=== PATIENT | male | born 1955 | race Caucasian/White ===

== ENCOUNTER 2021-03-19 00:12 | Emergency (ER) | payer OTHER ==
[2021-03-19 00:34] VITALS: BMI 16.8
[2021-03-19] MEDS ORDERED: ACETAMINOPHEN 325 MG TABLET (FP) PO ONE (00:49)
[2021-03-19] MEDS ORDERED: ACETAMINOPHEN 325 MG TABLET (FP) ONE (00:53)
[2021-03-19 01:34] LABS: BASO % 0.4 % (0-2.0); EOS % 1.8 % (0-4.5); HEMATOCRIT 39.7 % (35.4-49); HEMOGLOBIN 13.8 GM/dL (11.7-16.9); LYMPH % 46.5 % (8-40); MCH 32.7 pg (25.7-33.7); MCHC 34.8 g/dl (32.0-35.9); MEAN CELL VOLUME 93.8 fl (80-96); MEAN PLT VOLUME 10.3 fl (7.5-11.1); MONO % 8.1 % (3.8-10.2); NEUT % 43.2 % (42.8-82.8); PLATELET COUNT 133 10^3/uL (134-434); RBC 4.24 M/mm3 (4.00-5.60); RDW 11.9 % (11.9-15.9); WHITE BLOOD COUNT 6.1 K/mm3 (4.0-10.0)
[2021-03-19 01:47] LABS: CHLORIDE 106 mmol/L (98-107); SODIUM 142 mmol/L (136-145)
[2021-03-19 01:49] LABS: ALBUMIN 4.2 g/dl (3.4-5.0); ANION GAP 7 MMOL/L (8-16); BLOOD UREA NITROGEN 24.8 mg/dL (7-18); CALCIUM 9.1 mg/dL (8.5-10.1); CO2 29 mmol/L (21-32)
[2021-03-19 01:50] LABS: GLUCOSE,RANDOM 132 mg/dL (74-106)
[2021-03-19 01:52] LABS: SGPT/ALT 32 U/L (13-61)
[2021-03-19 01:54] LABS: BILIRUBIN,TOTAL 0.4 mg/dL (0.2-1); SGOT/AST 35 U/L (15-37)
[2021-03-19 01:55] LABS: ALK PHOS 106 U/L (45-117)
[2021-03-19 05:47] VITALS: BP 112/77; PULSE 59; TEMP 98.2
== END 2021-03-19 06:34 | disposition home or self-care (01) ==
LOC: JER 00:12
DX: R07.9 Chest pain, unspecified (principal)
CPT/HCPCS: 36415; 71046-TC-FY; 80053; 82550; 82553; 84484; 85025; 93005; 93010; 99285-25; C9803; U0003; U0005

== ENCOUNTER 2024-03-14 11:45 | Emergency (ER) | payer OTHER ==
[2024-03-14 12:05] VITALS: BP 148/84; PULSE 63; RESP 18; TEMP 97.5; BMI 23.0
[2024-03-14] MEDS ORDERED: ACETAMINOPHEN 325 MG TABLET (FP) ONE (12:29)
[2024-03-14] MEDS ORDERED: METHOCARBAMOL 500 MG TABLET ONE (12:30)
[2024-03-14] MEDS ORDERED: KETOROLAC TROMETHAMINE 30 MG/1 ML VIAL ONE (12:30)
[2024-03-14] MEDS: METHOCARBAMOL 500 MG TABLET PO ONE (12:35)
[2024-03-14] MEDS: KETOROLAC TROMETHAMINE 30 MG/1 ML VIAL IM ONE (12:35)
[2024-03-14] MEDS: ACETAMINOPHEN 325 MG TABLET (FP) PO ONE (12:35)
[2024-03-14 16:32] LABS: HIV INTERPRETATION NEGATIVE (NEGATIVE)
== END 2024-03-14 13:41 | disposition home or self-care (01) ==
LOC: FER 11:45
PROC: 3E0133Z Introduction of Anti-inflammatory into Subcutaneous Tissue, Percutaneous Approach (ICD-10-PCS; principal; 2024-03-14)
DX: M25.551 Pain in right hip (principal); M79.604 Pain in right leg
CPT/HCPCS: 36415; 81003; 86803; 87389; 96372; 99284-25

== ENCOUNTER 2024-03-15 09:43 | Emergency (ER) | payer OTHER ==
[2024-03-15 09:57] VITALS: TEMP 98.3; BMI 23.0
[2024-03-15] MEDS ORDERED: METHOCARBAMOL 500 MG TABLET ONE (11:11)
[2024-03-15] MEDS ORDERED: LIDOCAINE 4% PATCH TP ONE (11:11)
[2024-03-15] MEDS ORDERED: ACETAMINOPHEN 500 MG TABLET (FP) ONE (11:12)
[2024-03-15] MEDS: LIDOCAINE 4% PATCH TP ONE (11:23)
[2024-03-15] MEDS: ACETAMINOPHEN 500 MG TABLET (FP) PO ONE (11:23)
[2024-03-15] MEDS: METHOCARBAMOL 500 MG TABLET PO ONE (11:24)
[2024-03-15 12:01] LABS: BASO % 0.2 % (0-2.0); EOS % 0.6 % (0-4.5); HEMATOCRIT 40.9 % (35.4-49); HEMOGLOBIN 13.7 GM/dL (11.7-16.9); LYMPH % 35.5 % (8-40); MCHC 33.5 g/dl (32.0-35.9); MEAN CELL VOLUME 95.7 fl (80-96); MEAN PLT VOLUME 10.6 fl (7.5-11.1); MONO % 8.5 % (3.8-10.2); NEUT % 55.2 % (42.8-82.8); PLATELET COUNT 138 10^3/uL (134-434); RBC 4.28 M/mm3 (4.00-5.60); RDW 12.5 % (11.9-15.9); WHITE BLOOD COUNT 4.2 K/mm3 (4.0-10.0)
[2024-03-15 12:12] LABS: INR 1.2 (0.83-1.09); PROTHROMBIN TIME (PATIENT) 13.7 SEC (9.7-13.0)
[2024-03-15 12:15] LABS: ACTIVATED PTT 41.4 SECONDS (25.2-36.5)
[2024-03-15 12:20] LABS: POTASSIUM 4.7 mmol/L (3.5-5.1)
[2024-03-15 12:24] LABS: ALBUMIN 4.1 g/dl (3.4-5.0); CALCIUM 9.2 mg/dL (8.5-10.1)
[2024-03-15 12:27] LABS: CREATININE 1.2 mg/dL (0.55-1.3)
[2024-03-15 12:28] LABS: BILIRUBIN,TOTAL 0.5 mg/dL (0.2-1); TOT PROT 6.9 g/dl (6.4-8.2)
[2024-03-15 13:32] VITALS: BP 125/83; PULSE 60; RESP 20
[2024-03-15 13:56] LABS: HIV INTERPRETATION NEGATIVE (NEGATIVE)
[2024-03-15] MEDS ORDERED: LIDOCAINE PATCH REMOVAL MC ONE (22:00)
== END 2024-03-15 13:32 | disposition home or self-care (01) ==
LOC: JER 09:43
DX: M54.50 Low back pain, unspecified (principal); R07.9 Chest pain, unspecified; G89.29 Other chronic pain
CPT/HCPCS: 36415; 71046-TC-FY; 80053; 84439; 84443; 84484; 85025; 85610; 85730; 86803; 87389; 93005; 93010; 99285-25

== ENCOUNTER 2024-04-02 04:02 | Day surgery (SDC) | payer OTHER ==
[2024-04-01 16:13] VITALS: BMI 23.0
[2024-04-02] MEDS ORDERED: ACETAMINOPHEN 500 MG TABLET (FP) PO PRN (09:48)
[2024-04-02 13:42] VITALS: RESP 18
[2024-04-02] MEDS: LIDOCAINE HCL 1% PRESERVATIVE FREE - 30ML VIAL IJ ONE (14:48)
[2024-04-02] MEDS: IOHEXOL 180 MG/1 ML ML IJ ONE ×2 (14:52)
[2024-04-02] MEDS: DEXAMETHASONE SOD PHOSPHATE 10 MG/1 ML VIAL IM ONE ×2 (14:55)
[2024-04-02 15:16] VITALS: BP 122/76; PULSE 52; TEMP 98
== END 2024-04-02 15:30 | disposition home or self-care (01) ==
LOC: JASU-SURG 04:02
PROVIDERS: ATTEND Pain Medicine Pain Medicine
PROC: 3E0R3BZ Introduction of Anesthetic Agent into Spinal Canal, Percutaneous Approach (ICD-10-PCS; 2024-04-02)
PROC: 3E0R33Z Introduction of Anti-inflammatory into Spinal Canal, Percutaneous Approach (ICD-10-PCS; principal; 2024-04-02 14:30)
DX: M54.16 Radiculopathy, lumbar region (principal)
CPT/HCPCS: 76000-TC-FY; J1100

== ENCOUNTER 2024-04-29 04:44 | Day surgery (SDC) | payer OTHER ==
[2024-04-29] MEDS ORDERED: ACETAMINOPHEN 500 MG TABLET (FP) PO PRN (08:35)
[2024-04-29 13:17] VITALS: BMI 23.0
[2024-04-29 13:23] VITALS: RESP 20
[2024-04-29] MEDS: LIDOCAINE HCL 1% PRESERVATIVE FREE - 30ML VIAL IJ ONE (14:47)
[2024-04-29] MEDS: BUPIVACAINE HCL/PF 0.75% 10 ML VIAL NR ONE ×2 (14:51)
[2024-04-29 15:52] VITALS: BP 123/71; PULSE 56; TEMP 98
== END 2024-04-29 15:54 | disposition home or self-care (01) ==
LOC: JASU-SURG 04:44
PROVIDERS: ATTEND Pain Medicine Pain Medicine
PROC: 3E0T33Z Introduction of Anti-inflammatory into Peripheral Nerves and Plexi, Percutaneous Approach (ICD-10-PCS; 2024-04-29)
PROC: 3E0T3BZ Introduction of Anesthetic Agent into Peripheral Nerves and Plexi, Percutaneous Approach (ICD-10-PCS; principal; 2024-04-29 14:45)
DX: M47.816 Spondylosis without myelopathy or radiculopathy, lumbar region (principal)
CPT/HCPCS: 76000-TC-FY